=== PATIENT | male | born 1945 | race Caucasian/White ===

== ENCOUNTER → 2017-05-08 | Outpatient (CLI) | payer OTHER ==
[~2017-05-08] MED LIST: ASPIR-TRIN325 M1 PO; Flomax PO; LIPITOR40 MG PO; LUMIGAN 0.50 DROP/2. BOTH EYES; Lopressor PO; Omega III EPA + DHA PO; Vicodin,Lortab 5/500 PO; XALATAN 0.50 DROP/2. BOTH EYES; ZETIA10 MG PO; Zestril,Prinivil PO
== END | disposition home or self-care (01) ==
LOC: NUC 10:34
DX: R93.0 Abnormal findings on diagnostic imaging of skull and head, not elsewhere classified (principal); R93.7 Abnormal findings on diagnostic imaging of other parts of musculoskeletal system
CPT/HCPCS: 78306; A9503